=== PATIENT | male | born 1950 | race Caucasian/White ===

== ENCOUNTER 2018-11-15 10:31 | Day surgery (SDC) | payer BC, MEDICARE ==
[2018-11-15] MEDS ORDERED: PROPOFOL 10 MG/ML VIAL IV ONE (10:32)
[2018-11-15] MEDS ORDERED: LIDOCAINE 2% MDV (20MG/ML) 20ML VIAL IV ONE (10:32)
--- NOTE | 2018-11-17 08:30 | Operative Note ---
OPERATION: COLONOSCOPY to the cecum with cold biopsy forceps polypectomy x2. INDICATION: Prior history of colon polyps. The patient's last examination he claims was 5 years ago at [facility] by another physician. Prior to that, he had hyperplastic polyps only. It was recommended at his last colonoscopy that he have a checkup in 5 years. ANESTHESIA: Intravenous sedation was administered by the department of anesthesiology and included Diprivan titrated to effect. PROCEDURE: Following informed consent from this alert individual including a discussion of the risks and benefits of the procedure and an opportunity for the patient to ask questions, the patient was in the left lateral decubitus position. A digital rectal examination was performed. There was a small hemorrhoid noted on the right side. No other abnormalities were detected. Following this, the Olympus [id number] video colonoscope was inserted into the rectum without resistance. The rectal mucosa had a normal appearance with normal folds and distensibility. The sigmoid colon had a few scattered diverticula. The colonoscope was advanced up to the cecum without much difficulty. There was a small amount of retained stool noted which was washed and suctioned and moved out of view. The cecum was reached and identified by noting the appendiceal orifice and ileocecal valve. From the base of the cecum, the colonoscope was then withdrawn. Overall, the preparation was adequate. No polyps were noted in the right colon, transverse colon, or descending colon. Again the sigmoid colon had scattered diverticula noted. Within the rectum, there were 2 diminutive hyperplastic-appearing polyps each removed with application of cold biopsy forceps. Retroflexion in the rectum demonstrated just small internal and external hemorrhoids. The endoscope was then straightened and withdrawn. The patient tolerated the procedure well and was returned to the recovery area in stable condition. IMPRESSION: 1. Two diminutive 3 mm rectal polyps removed with biopsy forceps. 2. Sigmoid diverticulosis. 3. Small internal and external hemorrhoids. RECOMMENDATIONS: The patient was advised he should receive a copy of his pathology report at home in the next 2-3 weeks. Further recommendations will be forthcoming pending those results. Followup will also be with Nurys Miguel. As always, thank you for allowing me to participate in the care of your patient. TITA
== END 2018-11-15 13:15 | disposition home or self-care (01) ==
LOC: HOP 10:31
PROVIDERS: ATTEND Internal Medicine Gastroenterology
DX: Z12.11 Encounter for screening for malignant neoplasm of colon (principal); Z86.010 Personal history of colon polyps; K62.1 Rectal polyp; K57.30 Diverticulosis of large intestine without perforation or abscess without bleeding; K64.4 Residual hemorrhoidal skin tags; K64.8 Other hemorrhoids; E78.00 Pure hypercholesterolemia, unspecified